=== PATIENT | male | born 1955 | race Caucasian/White ===

== ENCOUNTER 2018-04-21 08:57 | Emergency (ER) | payer BC ==
[2018-04-21] MEDS: NEOMY/BACITR/POLYMYXIN OINT PACKET. TP (10:08)
[2018-04-21] MEDS: DIPHTH,PERTUSS(ACELL),TET TOX 0.5 ML DISP.SYRIN. VAX IM (10:08)
== END 2018-04-21 10:10 | disposition home or self-care (01) ==
LOC: ER 08:57
DX: S91.311A Laceration without foreign body, right foot, initial encounter (principal); E78.00 Pure hypercholesterolemia, unspecified; G70.00 Myasthenia gravis without (acute) exacerbation; F41.9 Anxiety disorder, unspecified; F31.9 Bipolar disorder, unspecified; I10 Essential (primary) hypertension; W26.8XXA Contact with other sharp object(s), not elsewhere classified, initial encounter; Y93.89 Activity, other specified; Y92.89 Other specified places as the place of occurrence of the external cause; Y99.8 Other external cause status
CPT/HCPCS: 90471; 90715; 99284